=== PATIENT | female | born 1960 | race Caucasian/White ===

== ENCOUNTER 2019-03-15 01:24 | Emergency (ER) | payer BC ==
--- NOTE | 2019-03-15 02:06 | EDM.PDOC ---
ED HPI GENERAL MEDICAL PROBLEM - General Chief Complaint: Syncope Stated Complaint: dizzy, nausea Time Seen by Provider: 03/15/19 01:47 Source of Information: Reports: Patient History Limitations: Reports: No Limitations - History of Present Illness INITIAL COMMENTS - FREE TEXT/NARRATIVE: This patient is a 58 year old female that presents to the ER. Patient reports that at about midnight she was had laying in bed with grandchildren when to get up. She reports when she went to get up from bed, she became very dizzy like the room and everything was spinning. Patient reports that she became nauseated and fell to the ground without injury. Patient reports she laid back down for a bit, then tried getting up again, but again felt very dizzy like everything was spinning, and fell again without injury to the floor. Patient reports that about 6pm she felt like she had a headache coming on, so she took something for it. Reports had a headache yesterday evening. but not right now. Patient reports global headache. Patient reports also while she had the dizziness that her both legs felt generally weak. Patient reports also that 1 week ago she fell mechanical fall down four steps. She was told she had just bruising from her fall. She was seen in a different ER then. Patient reports feeling fine prior to her dizziness today other than a headache that was coming on earlier. Patient denies current headache, vomiting, diarrhea, fever, unilateral weaknesses, loc, syncope, urinary/bowel incontinence. Onset: Today Onset Date: 03/15/19 Onset Time: 00:00 Severity: Moderate Worsens with: Reports: Movement Associated Symptoms: Reports: Headaches, Nausea/Vomiting, Weakness. Denies: Confusion, Chest Pain, Cough, cough w sputum, Diaphoresis, Fever/Chills, Loss of Appetite, Malaise, Rash, Seizure, Shortness of Breath, Syncope - Related Data Allergies Allergy/AdvReac Type Severity Reaction Status Date / Time promethazine [From Phenergan] Allergy Cannot Verified 03/15/19 04:01 Remember Home Meds: Home Meds Butalbit/Acetamin/Caff/Codeine [Dwuvgp-Klffypudgyx-Zrnj-Codein] 1 cap PO Q6H PRN 06/15/16 [History] Calcium Carb & Citrate/Vit D3 [Calcium + D3 ER Tablet] 1 tab PO DAILY 06/15/16 [ History] Calcium Carb/D3/Magnesium/Zinc [Bart Mag Zinc + D Tablet] 1 tab PO DAILY [History] Cholecalciferol (Vitamin D3) [Vitamin D] 1,000 unit PO DAILY 06/15/16 [History] Cranberry 2 tab PO DAILY 06/15/16 [History] traMADol [Ultram] 50 mg PO Q6H PRN 06/15/16 [History] Meclizine [Antivert] 25 mg PO Q6H PRN #12 tab 03/15/19 [Rx] Ondansetron [Zofran ODT] 4 mg PO Q6H PRN #12 tab.dis 03/15/19 [Rx] Past Medical History Other HEENT History: detached retinas Cardiovascular History: Reports: High Cholesterol Gastrointestinal History: Reports: Bowel Obstruction Neurological History: Reports: Migraines - Past Surgical History Female Surgical History: Reports: Hysterectomy, Oophorectomy Other Female Surgeries/Procedures: lumpectomy Musculoskeletal Surgical History: Reports: Knee Replacement Other Musculoskeletal Surgeries/Procedures:: wrist surgery Social & Family History - Family History Family Medical History: Noncontributory - Tobacco Use Smoking Status *Q: Never Smoker - Caffeine Use Caffeine Use: Reports: Coffee - Recreational Drug Use Recreational Drug Use: No ED ROS GENERAL - Review of Systems Review Of Systems: See Below Constitutional: Reports: No Symptoms HEENT: Reports: No Symptoms Respiratory: Reports: No Symptoms Cardiovascular: Reports: No Symptoms. Denies: Syncope Endocrine: Reports: No Symptoms GI/Abdominal: Reports: Nausea. Denies: Vomiting : Reports: No Symptoms Musculoskeletal: Reports: No Symptoms Skin: Reports: No Symptoms Neurological: Reports: Dizziness, Headache, Weakness (general). Denies: Seizure , Syncope Psychiatric: Reports: No Symptoms Hematologic/Lymphatic: Reports: No Symptoms Immunologic: Reports: No Symptoms ED EXAM, DIZZINESS - Physical Exam Exam: See Below Exam Limited By: No Limitations General Appearance: Alert, WD/WN, No Apparent Distress, Anxious Eye Exam: Bilateral Eye: EOMI, Normal Inspection, PERRL Nystagmus: worsens with head to L, reproducible, constant Ears: Normal External Exam, Normal Canal, Hearing Grossly Normal, Normal TMs Nose: Normal Inspection, Normal Mucosa, No Blood Throat/Mouth: Normal Inspection, Normal Lips, Normal Teeth, Normal Gums, Normal Oropharynx, Normal Voice, No Airway Compromise Head Exam: Atraumatic, Normocephalic Neck: Normal Inspection, Supple, Non-Tender, Full Range of Motion Respiratory/Chest: No Respiratory Distress, Lungs Clear, Normal Breath Sounds, No Accessory Muscle Use Cardiovascular: Normal Peripheral Pulses, Regular Rate, Rhythm, No Edema, No Gallop, No JVD, No Murmur, No Rub GI/Abdominal: Normal Bowel Sounds, Soft, Non-Tender, No Organomegaly, No Distention, No Abnormal Bruit, No Mass, Pelvis Stable (Female) Exam: Deferred Rectal (Female) Exam: Deferred Neurological: Alert, Normal Mood/Affect, CN II-XII Intact, No Motor/Sensory Deficits, Oriented x 3 Back Exam: Normal Inspection, Full Range of Motion Extremities: Normal Inspection, Normal Range of Motion, Non-Tender, No Pedal Edema, Normal Capillary Refill Psychiatric: Normal Mood, Anxious Skin Exam: Warm, Dry, Intact, Normal Color, No Rash EKG INTERPRETATION EKG Date: 03/15/19 Time: 01:58 Rhythm: NSR Rate (Beats/Min): 81 [place]: Normal P-Wave: Present QRS: Normal ST-T: Normal QT: Normal Course - Vital Signs Last Recorded V/S: Last Vital Signs Temp 97.8 F 03/15/19 01:24 Pulse 86 03/15/19 02:26 Resp 18 03/15/19 01:24 BP 133/83 03/15/19 02:26 Pulse Ox 98 03/15/19 01:24 - Orders/Labs/Meds Orders: Active Orders 24 hr Category Date Time Status Chest 2V [CR] Stat Exams 03/15/19 01:41 Taken Head wo Cont [CT] Stat Exams 03/15/19 01:58 Taken Labs: Laboratory Tests 03/15/19 03/15/19 03/15/19 Range/Units 01:41 01:41 01:41 WBC 6.3 (5.0-10.0) 10^3/uL RBC 4.51 (4.00-5.50) 10^6/uL Hgb 13.9 (12.0-16.0) g/dL Hct 41.3 (37.0-47.0) % MCV 91.6 (82.0-94.0) fL MCH 30.8 (27.0-32.0) pg MCHC 33.7 (33.0-38.0) g/dL RDW Coeff of Bobby 12.3 (11.0-15.0) % Plt Count 217 (150-400) 10^3/uL Neut % (Auto) 59.0 (35-85) % Lymph % (Auto) 27.2 (10-55) % [place] % (Auto) 11.4 (0-16) % Eos % (Auto) 2.1 (0-5) % Baso % (Auto) 0.3 (0-3) % Neut # (Auto) 3.73 (1.80-7.00) 10^3/uL Lymph # (Auto) 1.72 (1.00-4.80) 10^3/uL [place] # (Auto) 0.72 (0.00-0.80) 10^3/uL Eos # (Auto) 0.13 (0.00-0.45) 10^3/uL Baso # (Auto) 0.02 10^3/uL PT 10.5 (9.7-12.3) SEC INR 1.02 (0.92-1.18) Sodium (136-145) mEq/L Potassium (3.5-5.0) mEq/L Chloride (98-106) mEq/L Carbon Dioxide (21-32) mmol/L BUN (7-18) mg/dL Creatinine (0.6-1.0) mg/dL Est Cr Clr Drug Dosing mL/min Estimated GFR (MDRD) (>=60) mL/min Glucose (75-99) mg/dL Calcium (8.4-10.1) mg/dL Total Bilirubin (0.0-1.0) mg/dL AST (15-37) U/L ALT (12-78) U/L Alkaline Phosphatase (46-116) U/L Lactate Dehydrogenase (100-190) U/L Creatine Kinase (21-215) U/L Troponin I (0.00-0.06) ng/mL Total Protein (6.4-8.2) g/dL Albumin (3.4-5.0) g/dL Urine Color Yellow (YELLOW) Urine Appearance Clear (CLEAR) Urine pH 7.0 (4.5-8.0) Ur Specific [place] 1.020 (1.003-1.020) Urine Protein Negative (NEGATIVE) mg/dL Urine Glucose (UA) Negative (NEGATIVE) mg/dL Urine Ketones Negative (NEGATIVE) mg/dL Urine Occult Blood Negative (NEGATIVE) Urine Nitrite Negative (NEGATIVE) Urine Bilirubin Negative (NEGATIVE) Urine Urobilinogen 0.2 (0.2-1.0) EU/dL Ur Leukocyte Esterase Negative (NEGATIVE) 03/15/19 03/15/19 Range/Units 01:41 07:00 WBC (5.0-10.0) 10^3/uL RBC (4.00-5.50) 10^6/uL Hgb (12.0-16.0) g/dL Hct (37.0-47.0) % MCV (82.0-94.0) fL MCH (27.0-32.0) pg MCHC (33.0-38.0) g/dL RDW Coeff of Bobby (11.0-15.0) % Plt Count (150-400) 10^3/uL Neut % (Auto) (35-85) % Lymph % (Auto) (10-55) % [place] % (Auto) (0-16) % Eos % (Auto) (0-5) % Baso % (Auto) (0-3) % Neut # (Auto) (1.80-7.00) 10^3/uL Lymph # (Auto) (1.00-4.80) 10^3/uL [place] # (Auto) (0.00-0.80) 10^3/uL Eos # (Auto) (0.00-0.45) 10^3/uL Baso # (Auto) 10^3/uL PT (9.7-12.3) SEC INR (0.92-1.18) Sodium 144 (136-145) mEq/L Potassium 3.3 L (3.5-5.0) mEq/L Chloride 105 (98-106) mEq/L Carbon Dioxide 28 (21-32) mmol/L BUN 18 (7-18) mg/dL Creatinine 0.6 (0.6-1.0) mg/dL Est Cr Clr Drug Dosing 89.72 mL/min Estimated GFR (MDRD) > 60 (>=60) mL/min Glucose 118 H (75-99) mg/dL Calcium 8.5 (8.4-10.1) mg/dL Total Bilirubin 0.2 (0.0-1.0) mg/dL AST 18 (15-37) U/L ALT 27 (12-78) U/L Alkaline Phosphatase 89 (46-116) U/L Lactate Dehydrogenase 199 H (100-190) U/L Creatine Kinase 90 (21-215) U/L Troponin I < 0.017 < 0.017 (0.00-0.06) ng/mL Total Protein 7.3 (6.4-8.2) g/dL Albumin 3.8 (3.4-5.0) g/dL Urine Color (YELLOW) Urine Appearance (CLEAR) Urine pH (4.5-8.0) Ur Specific [place] (1.003-1.020) Urine Protein (NEGATIVE) mg/dL Urine Glucose (UA) (NEGATIVE) mg/dL Urine Ketones (NEGATIVE) mg/dL Urine Occult Blood (NEGATIVE) Urine Nitrite (NEGATIVE) Urine Bilirubin (NEGATIVE) Urine Urobilinogen (0.2-1.0) EU/dL Ur Leukocyte Esterase (NEGATIVE) Meds: Medications Discontinued Medications Generic Name Dose Route Start Last Admin Trade Name Freq PRN Reason Stop Dose Admin Sodium Chloride 1,000 mls @ 1,000 mls/hr 03/15/19 02:12 03/15/19 02:19 Normal Saline IV 03/15/19 03:11 1,000 mls/hr .BOLUS ONE Administration Meclizine HCl 12.5 mg 03/15/19 02:13 03/15/19 02:19 Antivert PO 03/15/19 02:14 12.5 mg ONETIME ONE Administration Ondansetron HCl 4 mg 03/15/19 02:15 03/15/19 02:19 Zofran Odt PO 03/15/19 02:16 4 mg ONETIME ONE Administration - Radiology Interpretation Free Text/Narrative:: Head CT: no bleed, no ischemia, no acute findings. TMJ osteoarthritis. CXR: no cardiomegaly, no infiltrates, no pulmonary edema. CT Results Date: 03/15/19 CT Results Time: 03:15 - Re-Assessments/Exams Free Text/Narrative Re-Assessment/Exam: 03/15/19 03:02 Rosemary maneuver performed on patient. Patient does report worsening to the left. She does report dizziness/nausea during maneuver did worsen, but towards end and at end of procedure the patient reports not resolved, but feeling better and not as dizzy or nauseated. Did voice improvement. 03/15/19 03:22 Patient reports that she does not feel as dizzy. She no longer has nausea. Will repeat troponin and discharge if negative. Discussed when to return to the ER. She understands. Discussed how her fall could also be a cause for vertigo tonight. 03/15/19 09:00 Patient is waiting on ride. She reports that she feels significantly better. She is ready to go home. Troponin was negative. Departure - Departure Time of Disposition: 07:20 Disposition: Home, Self-Care 01 Condition: Fair Clinical Impression: Vertigo - Discharge Information *PRESCRIPTION DRUG MONITORING PROGRAM REVIEWED*: Not Applicable *COPY OF PRESCRIPTION DRUG MONITORING REPORT IN PATIENT TRENT: Not Applicable Prescriptions: Meclizine [Antivert] 25 mg PO Q6H PRN #12 tab PRN Reason: Dizziness Ondansetron [Zofran ODT] 4 mg PO Q6H PRN #12 tab.dis PRN Reason: Nausea/Vomiting Instructions: How to Perform the Rosemary Maneuver, Benign Positional Vertigo Referrals: Juan Silva MD [Primary Care Provider] - Forms: ED Department Discharge Additional Instructions: Followup with primary care provider Return to the ER for worsening of condition or any emergent concerns See physical therapy or chiropractor for Rosemary Maneuver Increase fluids Rest Meclizine 25mg 1 pill once a day #10 no refill for vertigo Zofran 4mg 1 pill ODT every 6 hours as needed for nausea #8 no refill - My Orders Last 24 Hours: My Active Orders 03/15/19 01:41 Chest 2V [CR] Stat 03/15/19 01:58 Head wo Cont [CT] Stat - Assessment/Plan Last 24 Hours: My Active Orders 03/15/19 01:41 Chest 2V [CR] Stat 03/15/19 01:58 Head wo Cont [CT] Stat Plan: PLEASE SEE RN NOTE FOR PFSH.
[2019-03-15 02:09] LABS: CHLORIDE,CL 105 mEq/L (98-106); SODIUM,NA 144 mEq/L (136-145)
[2019-03-15] MEDS ORDERED: Sodium Chloride 0.9% 1,000 ML IV ONE (02:12)
[2019-03-15] MEDS ORDERED: Meclizine 12.5 MG Tab PO ONE (02:13)
[2019-03-15] MEDS ORDERED: Ondansetron 4 MG Tab.DIS PO ONE (02:15)
[2019-03-15 02:26] VITALS: BP 133/83; PULSE 86
== END 2019-03-15 09:30 | disposition home or self-care (01) ==
LOC: CC.ED 01:24
DX: R42 Dizziness and giddiness (principal); Z88.8 Allergy status to other drugs, medicaments and biological substances
CPT/HCPCS: 36415; 70450; 71046; 80053; 81003; 82550; 83615; 84484; 85025; 85610; 93005; 96360; 96361; 99285; A9270; J7030